=== PATIENT | male | born 1970 | race Caucasian/White ===

== ENCOUNTER 2016-12-29 05:55 | Day surgery (SDC) | payer OTHER ==
[2016-12-27 16:50] VITALS: BMI 24.5
[2016-12-29] MEDS ORDERED: CEFAZOLIN 2 GM in DEXTROSE 5%-WATER - 100 ML IVPB ONE (06:15)
[2016-12-29] MEDS ORDERED: oxyCODONE HCL 10 MG SUSTAINED ACTING TABLET PO STA (06:15)
[2016-12-29] MEDS ORDERED: methylPREDNISolone ACET (DEPO) 40 MG/1 ML VIAL ONE (06:30)
[2016-12-29] MEDS ORDERED: GELATIN, ABSORBABLE 100 EACH SPONGE TP ONE (06:31)
[2016-12-29] MEDS ORDERED: BUPIVACAINE HCL/PF 2.5 MG/ML - 30 ML VIAL IJ ONE (06:31)
[2016-12-29] MEDS ORDERED: LIDOCAINE 1%-EPI 1:100,000 30 ML MDV IJ ONE (06:31)
[2016-12-29] MEDS ORDERED: THROMBIN (BOVINE) 5,000 UNIT VIAL TP ONE ×2 (06:31→08:32)
[2016-12-29] MEDS ORDERED: oxyCODONE HCL 10 MG SUSTAINED ACTING TABLET ONE (06:42)
[2016-12-29] MEDS ORDERED: PROPOFOL 20 ML ONE (07:19)
[2016-12-29] MEDS ORDERED: SUCCINYLCHOLINE CHLORIDE 200 MG/10 ML VIAL ONE (07:19)
[2016-12-29] MEDS ORDERED: MIDAZOLAM HCL 2 MG/2 ML SINGLE DOSE VIAL ONE ×2 (07:19→07:21)
[2016-12-29] MEDS ORDERED: BUPIVACAINE HCL/PF 0.5% (5MG/ML) 10 ML VIAL ONE (07:34)
--- NOTE | 2016-12-29 07:38 | HP ---
History & Physical Update - History History: No Change - Physical Physical: No Change - Assessment Assessment: No Change - Plan Plan: No Change (Here today for elective repair of his L3-L4 spinal stenosis. Prior to surgery, pt c/o pain/numbness/tingling to RLE all the way down to his foot. This is my first time meeting the patient. Introduced myself and informed patient that I will be assisting Dr. Penny for todays procedure. He is fine wit that.)
[2016-12-29] MEDS ORDERED: LIDOCAINE HCL 1%, 10 MG/ML (50 mL VIAL) IJ ONE (07:50)
[2016-12-29] MEDS ORDERED: methylPREDNISolone ACET (DEPO) 40 MG/1 ML VIAL IM ONE (08:35)
[2016-12-29] MEDS ORDERED: BUPIVACAINE HCL/PF 0.25% (2.5MG/ML) 10 ML VIAL IJ ONE (08:50)
--- NOTE | 2016-12-29 08:59 | OP ---
Operative Note - Note: Operative Date: 12/29/16 Pre-Operative Diagnosis: Spinal stenosis L3-L4 Operation: Unilateral laminectomy (right sided) L3-L4 Post-Operative Diagnosis: Same as Pre-op Surgeon: Zhang Penny Associate Professor Of Automation: Armando Boucher Anesthesiologist/POLYMER SPECIALIST: Francis Gaona Anesthesia: Spinal Estimated Blood Loss (mls): 15 Fluid Volume Replaced (mls): 300 Operative Report Dictated: Yes
--- NOTE | 2016-12-29 09:00 | SURG ---
Surgery Braille Coder Note Braille Coder: Armando Boucher PA-C Date of Service: 12/29/16 Diagnosis: Spinal stenosis L3-L4 with radiculopathy Procedure: CPT CODE: 44183 Unilateral laminectomy L3-L4 (right side) I was present for the entirety of the operative procedure. For further detail, please refer to operative report. Visit type - Case Type Case Type: Scheduled Admission - New patient This patient is new to me today: Yes Date on this admission: 12/29/16
[2016-12-29] MEDS ORDERED: ACETAMINOPHEN 1000 MG/100 ML VIAL (NON FORMULARY) IVPB ONE (09:01)
[2016-12-29] MEDS ORDERED: ACETAMINOPHEN INJECTION 100 ML IVPB ONE (09:03)
--- NOTE | 2016-12-29 09:45 | OP ---
DATE OF OPERATION: 12/29/2016 PREOPERATIVE DIAGNOSIS: Spinal stenosis, L3-L4. POSTOPERATIVE DIAGNOSIS: Spinal stenosis, L3-L4. PROCEDURE PERFORMED: Hemilaminectomy, L3-L4. SURGEON: Zhang Penny MD ADULT DAYCARE COORDINATOR: MITCH Wetzel ESTIMATED BLOOD LOSS: 50 mL. IV FLUID: Per Anesthesia. ANESTHESIA: Spinal. COMPLICATIONS: There were none. DISPOSITION: Patient brought to the PACU in stable condition. INDICATIONS FOR SURGERY: The patient is a 46-year-old gentleman who has been suffering from significant pain from his back down his right leg. X-rays and MRI were completed, which noted that he had spinal stenosis at L3-L4 on the right-hand side secondary to a herniated disc. He had gone through an exhaustive course of treatment for this which included medications, physical therapy, as well as injections. Unfortunately, his pain continued to persist despite all this. At this point, risks, benefits, and alternatives were discussed, and the patient consented to surgery. OPERATIVE NOTE: Patient was brought to the operating room by the Anesthesia staff. After appropriate patient identification was performed, spinal anesthesia was given. He was placed prone onto the Hamilton frame. The patient was able to position himself onto the Hamilton frame with all areas of bony prominences well padded. At this time, two needles were placed into his back to tom off the L3-l4 segment. An x-ray was taken to confirm the needles track. The needle was removed, and 10 mL of lidocaine with epinephrine was injected into his back. At this time, his back was prepped and draped in a sterile manner. At this point, a time-out was completed. An incision was made from the top of L3 down to the bottom of L4. Dissection was carried down to the fascia. Fascia was then split open at this time, and appropriate retractor was then placed in. A spinal needle was placed onto the L3 lamina. An x-ray was taken to confirm this was correct. The needle was removed, and a microscope was brought in. At this point, a katie was used to remove portions of the L3 lamina. The segment was identified, and it was removed. A complete foraminotomy was performed by removing portion of the inferior and superior facet. By the end of the procedure, the L4 nerve root appeared to be well decompressed. All bleedings were controlled at this time. Steroids were placed over the nerve root. Floseal was placed over that. The fascia was closed with a No. 1 Vicryl suture. The subcutaneous tissues were closed with 2-0 Vicryl suture. Skin was closed with 3-0 Monocryl suture. Dermabond was applied. Steri-Strips were applied, and sterile dressings applied. Patient was placed supine on the OR bed and brought to the PACU in stable condition. Raquel WEEKS/[id number]
[2016-12-29] MEDS ORDERED: ONDANSETRON 4 MG/2 ML VIAL IVPUSH PRN (10:04)
[2016-12-29] MEDS ORDERED: oxyCODONE HCL 5 MG TABLET PO ONE (10:05)
[2016-12-29] MEDS ORDERED: LACTATED RINGERS SOLUTION 1,000 ML IV SCH (10:15)
[2016-12-29 10:19] VITALS: TEMP 98.1
[2016-12-29] MEDS ORDERED: oxyCODONE HCL 5 MG TABLET ONE ×2 (10:36→11:03)
[2016-12-29 12:05] VITALS: BP 126/84; PULSE 68
== END 2016-12-29 12:06 | disposition home or self-care (01) ==
LOC: FASU 05:55
PROVIDERS: ATTEND Orthopaedic Surgery Orthopaedic Surgery of the Spine
PROC: 01NB0ZZ Release Lumbar Nerve, Open Approach (ICD-10-PCS; principal; 2016-12-29 07:30)
DX: M48.06 Spinal stenosis, lumbar region (principal)
CPT/HCPCS: 72100-TC; 76000-TC; 94760